=== PATIENT | male | born 1975 | race Two or more races ===

== ENCOUNTER 2019-03-13 12:24 | Emergency (ER) | payer OTHER ==
[~2019-03-13] VITALS: Ht 172.7 cm; Wt 200.0 kg
[2019-03-13 12:53] VITALS: BP 119/78
--- NOTE | 2019-03-13 13:45 | RAD ---
CHEST PA LATERAL History: Cough, fever Comparison: None. Findings: 2 views of the chest are submitted. There is mild airspace opacity of the medial right lung base although only seen on the AP view. There is no dependent pleural fluid or pneumothorax. Cardiac silhouette is considered within normal limits. Impression: 1. There is mild opacity of the medial right lung base on the AP view which may be mild infiltrate although poorly seen on the lateral view. Electronically signed by: Aldo Lynn MD (03/13/2019 1:42 PM) [facility]
[2019-03-13 13:56] LABS: BILIRUBIN,URINE NEGATIVE (NEG); CLARITY,URINE CLEAR; COLOR,URINE YELLOW; NITRITE,URINE NEGATIVE (NEG); PROTEIN,URINE NEGATIVE (NEG-TRACE); UROBILINOGEN,URINE 0.2 mg/dL (0.2 mg/dL)
[2019-03-13 14:11] LABS: BACTERIA,URINE 0 /HPF (0-FEW); RBC,URINE 0 /HPF (0-2); WBC,URINE 0 /HPF (0-4)
[2019-03-13] MEDS ORDERED: DOXY100T PO (14:51)
--- NOTE | 2019-03-13 14:51 | PHYS DOC ---
Past Medical History Past Medical History: No Pertinent History Past Surgical History: No Surgical History Alcohol Use: None Adult General Chief Complaint Chief Complaint: COUGH HPI HPI Patient is a 43 year old male] who presents with [fever, body aches, chest tightness. States for the past 5-6 days he has been feeling feverish, with chills. States he has some discomfort to his chest when he takes a deep breath or is breathing. States he does smoke occasionally, but has been smoking less due to his discomfort. States he has also had some increased nose bleeding over the past couple days. Reports mild cough with phlegm. Reports one episode of emesis which he relates was related to coughing up mucous. Denies other ill persons at home] Review of Systems Review of Systems Constitutional:Reports fever and chills [] Eyes: Denies change in visual acuity, redness, or eye pain [] HENT: Reports nasal congestion and occasional nose bleedingt [] Respiratory: Reports cough, denies SOA [] Cardiovascular: No additional information not addressed in HPI [] GI: Denies abdominal pain, nausea, vomiting, bloody stools or diarrhea [] : Denies dysuria or hematuria [] Musculoskeletal: Reports back pain [] Integument: Denies rash or skin lesions [] Neurologic: Reports headache, Denies focal weakness or sensory changes [] Endocrine: Denies polyuria or polydipsia [] All other systems were reviewed and found to be within normal limits, except as documented in this note. Physical Exam Physical Exam Constitutional: Well developed, well nourished, no acute distress, non-toxic appearance. Patient wearing several layers [] HENT: Normocephalic, atraumatic, bilateral external ears normal, oropharynx moist, no oral exudates, nose normal. Tonsils 1_+ no purulence or erythema Left nare with small amount of erythema, no active bleeding noted at this time. [] Eyes: PERRLA, EOMI, conjunctiva normal, no discharge. [] Neck: Normal range of motion, no tenderness, supple, no stridor. [] Cardiovascular:Heart rate regular rhythm, no murmur [] Lungs & Thorax: Bilateral breath sounds clear to auscultation [] Abdomen: Bowel sounds normal, soft, no tenderness, no masses, no pulsatile masses. [] Skin: Warm, dry, no erythema, no rash. [] Back: No tenderness, no CVA tenderness. [] Extremities: No tenderness, no cyanosis, no clubbing, ROM intact, no edema. [] Neurologic: Alert and oriented X 3, normal motor function, normal sensory function, no focal deficits noted. [] Psychologic: Affect normal, judgement normal, mood normal. [] Current Patient Data Vital Signs Vital Signs Date Time Temp Pulse Resp B/P (MAP) Pulse Ox O2 Delivery O2 Flow Rate FiO2 03/13/19 12:53 99.4 94 16 119/78 (92) 92 Room Air 99.4 Lab Values Laboratory Tests Test 03/13/19 13:00 Urine Collection Type Unknown Urine Color Yellow Urine Clarity Clear Urine pH 6.0 Urine Specific [place] 1.020 Urine Protein Negative mg/dL (NEG-TRACE) Urine Glucose (UA) Negative mg/dL (NEG) Urine Ketones (Stick) Negative mg/dL (NEG) Urine Blood Negative (NEG) Urine Nitrite Negative (NEG) Urine Bilirubin Negative (NEG) Urine Urobilinogen Dipstick 0.2 mg/dL (0.2 mg/dL) Urine Leukocyte Esterase Negative (NEG) Urine RBC 0 /HPF (0-2) Urine WBC 0 /HPF (0-4) Urine Bacteria 0 /HPF (0-FEW) EKG EKG [] Radiology/Procedures Radiology/Procedures [] Findings: 2 views of the chest are submitted. There is mild airspace opacity of the medial right lung base although only seen on the AP view. There is no dependent pleural fluid or pneumothorax. Cardiac silhouette is considered within normal limits. Impression: 1. There is mild opacity of the medial right lung base on the AP view which may be mild infiltrate although poorly seen on the lateral view. Electronically signed by: Aldo Lynn MD (03/13/2019 1:42 PM) [facility] Course & Med Decision Making Course & Med Decision Making Pertinent Labs and Imaging studies reviewed. (See chart for details) [Discussed findings with patient, with noted pneumonia. Will provide Rx for antibiotics. Recommend taking OTC cough and congestion medication. Recommend nasal decongestants and humidified air at home. Continue tylenol/ibuprofen] Dragon Disclaimer Dragon Disclaimer This electronic medical record was generated, in whole or in part, using a voice recognition dictation system. Departure Departure Impression: Primary Impression: Pneumonia Referrals: NO PCP (PCP) Patient Instructions: Pneumonia, Adult Additional Instructions: Marie hablemos, tanja todo los antibioticos. Tanja paracetamol o ibuprofen para fiebre. Lyman que esta tomando suficiente agua a ser hidritado. Usa humidificacion en la casa para mejorar sangrando de la nariz. Scripts Doxycycline Hyclate (DOXYCYCLINE HYCLATE) 100 Mg Tablet 100 MG PO BID for 10 Days, #20 TAB Prov: MINDY BIGGS APRN 03/13/19 Problem Qualifiers Primary Impression: Pneumonia Pneumonia type: due to unspecified organism Laterality: right Lung location: lower lobe of lung Qualified Codes: J18.9 - Pneumonia, unspecified organism MINDY BIGGS [employer] Mar 13, 2019 14:51
== END 2019-03-13 15:02 | disposition home or self-care (01) ==
LOC: ER 12:24
DX: J18.9 Pneumonia, unspecified organism (principal); R11.10 Vomiting, unspecified; R04.0 Epistaxis; R50.9 Fever, unspecified; R05 Cough; R07.89 Other chest pain; R09.81 Nasal congestion; F17.200 Nicotine dependence, unspecified, uncomplicated
CPT/HCPCS: 71046; 81001; 99285